=== PATIENT | female | born 1970 | race Caucasian/White ===

== ENCOUNTER 2018-04-17 11:47 | Emergency (ER) | payer OTHER, SELFPAY ==
[2018-04-17 12:05] VITALS: BP 110/68; PULSE 80; RESP 20; TEMP 36.6; O2SAT 100; BMI 20.9
--- NOTE | 2018-04-17 12:05 | ED.EYEPROB ---
HPI - Eye Problem <SHAZIA Steve - Last Filed: 04/17/18 22:06> General Chief complaint: Eye Problems Stated complaint: itching/burning on both eyes Time Seen by Provider: 04/17/18 12:05 Source: patient Mode of arrival: ambulatory Limitations: no limitations History of Present Illness HPI Narrative: 47-year-old female here for complaint of having irritation and redness to bilateral upper eyelids for the past couple of weeks. She also reports having light sensitivity to to both eyes for the same timeframe. She states that she has some watering of her eyes mostly in the morning. She denies any purulent drainage from the eyes. She denies any changes in lotions or hygiene products. She denies any vision changes. No other concerns or complaints at this time. Related Data Home Medications Medication Instructions Recorded Confirmed dextroamphetamine-amphetamine 1 cap PO DAILY 04/17/18 04/17/18 Allergies Allergy/AdvReac Type Severity Reaction Status Date / Time Penicillins Allergy Verified 04/17/18 12:09 Review of Systems <SHAZIA Steve - Last Filed: 04/17/18 22:06> Constitutional Denies chills, Denies fever(s), Denies lethargy and Denies weakness Eyes Comments: Irritation to bilateral eyelids ENT Ears, Nose, Mouth, and Throat: Denies change in voice, Denies neck pain and Denies sore throat Cardiovascular Denies chest pain, Denies irregular heart rhythm, Denies lightheadedness, Denies palpitations, Denies dyspnea, Denies dyspnea on exertion and Denies orthopnea Respiratory Denies cough, Denies dyspnea, Denies dyspnea on exertion and Denies wheezing Gastrointestinal Gastrointestinal: Denies abdominal pain, Denies change in bowel habits, Denies diarrhea, Denies nausea and Denies vomiting Genitourinary Denies hematuria, Denies flank pain, Denies urinary incontinence and Denies urinary urgency Musculoskeletal Denies neck pain Integumentary/Breasts Denies pruritus, Denies erythema, Denies rash and Denies wounds Neurologic Denies confusion and Denies weakness Psychiatric Denies anxiety, Denies confusion, Denies depression, Denies homicidal ideation and Denies suicidal ideation Endocrine Denies palpitations Hematologic/Lymphatic Denies easy bruising Allergic/Immunologic Denies wheezing Exam <SHAZIA Steve - Last Filed: 04/17/18 22:06> Initial Vital Signs Initial Vital Signs: Vital Signs Temperature 97.8 F 04/17/18 12:05 Pulse Rate 80 04/17/18 12:05 Respiratory Rate 20 04/17/18 12:05 Blood Pressure 110/68 04/17/18 12:05 Pulse Oximetry 100 04/17/18 12:05 Const General: cooperative and well developed Nutritional Appearance: well nourished Orientation: alert, awake, oriented x3 and not confused HENVA Mouth: oral mucosae normal and moist mucous membranes Eyes General: appearance normal, both eyes and all related structures Eyelids: eyelid abnormality (Slight erythema to bilateral upper eyelids) Conjunctivae: conjunctivae normal Sclera: sclerae normal Pupils: PERRL EOM: EOM intact bilaterally Resp Effort & Inspection: normal respiratory effort, able to speak in complete sentences, no respiratory distress and no use of accessory muscles Auscultation: clear to auscultation bilaterally, no rales, no rhonchi and no wheezes Cardio Rate: regular rate Rhythm: regular rhythm Heart Sounds: no click, no gallops, no murmurs and no rubs Pulses: normal peripheral pulses Skin General: no rashes or lesions noted, No jaundice and No petechiae Neuro General: alert, oriented x3, gait normal and no focal motor deficits Speech: speech normal <Flakito Wallace MD - Last Filed: 04/19/18 07:22> Initial Vital Signs Initial Vital Signs: Vital Signs Temperature 97.8 F 04/17/18 12:05 Pulse Rate 80 04/17/18 12:05 Respiratory Rate 20 04/17/18 12:05 Blood Pressure 110/68 04/17/18 12:05 Pulse Oximetry 100 04/17/18 12:05 Course <SHAZIA Steev - Last Filed: 04/17/18 22:06> Vital Signs - 8 hr 04/17/18 12:05 Temperature 97.8 F Pulse Rate 80 Respiratory Rate 20 Blood Pressure 110/68 Pulse Oximetry 100 <Flakito Wallace MD - Last Filed: 04/19/18 07:22> Vital Signs - 8 hr 04/17/18 12:05 Temperature 97.8 F Pulse Rate 80 Respiratory Rate 20 Blood Pressure 110/68 Pulse Oximetry 100 MDM - Eye Problem <SHAZIA Steve - Last Filed: 04/17/18 22:06> MDM Narrative Medical decision making narrative: Signs and symptoms are consistent with blepharitis. Discussed case with Ophthalmology who will do a further examination today. She is sent over to ophthalmology for further evaluation and treatment. Return emergency room for any worsening symptoms. Follow up with primary care provider. Discharge Plan Departure Patient Disposition: Home Clinical Impression: Blepharitis of both eyes Discharge Date/Time: 04/17/18 12:52 Interventions: ED Discharge Assessment Last Done: 04/17/18 12:40 Instructions: DI for Blepharitis Activity Restrictions/Additional Instructions: Signs and symptoms are consistent with blepharitis. Recommend having thorough eye exam. Ophthalmology will see you today. After leaving here walk over to ophthalmology for further evaluation and treatment. For any worsening symptoms return emergency room. Prescriptions: No Action dextroamphetamine-amphetamine 20 mg capsule,extended release 24hr 1 cap PO DAILY RF: 0 Referrals: Heladio Sorensen MD [Physician] - <Flakito Wallace MD - Last Filed: 04/19/18 07:22> Sign Out Provider Sign Out Attestation: The PA/METAL PRECISION MACHINE ASSEMBLER functioned independently for the care of this pt, I was available, but not asked to participate in care. I am unable to determine appropriateness of management without personally examining the pt.
== END 2018-04-17 12:52 | disposition home or self-care (01) ==
PROVIDERS: Emergency Provider Nurse Practitioner Family
DX: H01.003 Unspecified blepharitis right eye, unspecified eyelid (principal); H01.006 Unspecified blepharitis left eye, unspecified eyelid
CPT/HCPCS: 99282; 99283

== ENCOUNTER → 2022-12-05 11:16 | Outpatient (CLI) | payer OTHER, SELFPAY | PROVIDERS: Family Provider Physician Assistant; PCP Physician Assistant; Referring Provider Physician Assistant; Visit Provider Physician Assistant | DX: M79.601 Pain in right arm (principal) | CPT/HCPCS: 95886; 95909 ==

== ENCOUNTER → 2023-12-29 12:39 | Outpatient (CLI) | payer OTHER, SELFPAY ==
--- NOTE | 2023-12-29 12:40 | DI.US.S_ITS ---
ULTRASOUND OF RIGHT BREAST: 12/29/2023 CLINICAL: Follow up prior abnormal mammo + ultrasound. Comparison is made to exams dated: 05/30/2023 ultrasound, 05/30/2023 mammogram, 05/27/2023 mammogram, 03/15/2022 mammogram, and 09/08/2018 mammogram - [facility]. Color flow and real-time ultrasound of the right breast were performed. Strong scale images of the real-time examination were reviewed. There is a 0.8 cm x 0.5 cm x 0.8 cm oval mass with a circumscribed margin in the right breast at 9 o'clock posterior depth 3 cm from the nipple. This oval mass is hypoechoic and heterogeneously echogenic with internal echoes and no posterior acoustic shadowing or enhancement. Accounting for differences in imaging technique, this abnormality is not significantly changed although there are a few angular margins today. There was question about whether this correlated with a mammographic asymmetry. IMPRESSION: INCOMPLETE: NEEDS ADDITIONAL IMAGING EVALUATION The 0.8 cm x 0.5 cm x 0.8 cm oval mass in the right breast is indeterminate. Comparison with updated right mammogram is recommended but was not able to be performed today. The patient will return for repeat right mammogram to demonstrate stability of previously described right breast asymmetry. An ultrasound guided biopsy is recommended given possible changes in appearance of the margins of this mass. This is at a low suspicion for malignancy. Findings and recommendations were discussed with the patient by Dr. Louie by telephone at 1146 hrs on 12/31/2023. This exam was interpreted at Station ID: [id number]. Electronically Signed By: Nitish Louie M.D. aty/:12/31/2023 11:46:57 letter sent: Additional Imaging Needed Ultrasound BI-RADS: 0 Indeterminate
== END ==
LOC: US 12:39
PROVIDERS: Family Provider Physician Assistant; PCP Physician Assistant; Referring Provider Nurse Practitioner Family; Visit Provider Nurse Practitioner Family
DX: N63.10 Unspecified lump in the right breast, unspecified quadrant (principal)
CPT/HCPCS: 76642

== ENCOUNTER → 2024-01-13 09:38 | Outpatient (CLI) | payer OTHER, SELFPAY ==
--- NOTE | 2024-01-13 09:39 | DI.MG.S_ITS ---
UNILATERAL RIGHT DIGITAL DIAGNOSTIC MAMMOGRAM 3D/2D: 01/13/2024 CLINICAL: Additional evaluation requested from prior study. Comparison is made to exams dated: 12/29/2023 ultrasound - [facility], 05/30/2023 ultrasound, 05/30/2023 mammogram, 05/27/2023 mammogram, 03/15/2022 mammogram, and 09/08/2018 mammogram - [facility]. The right breast is heterogeneously dense, which may obscure small masses (category c / 51-75% glandular tissue). No significant masses, calcifications, or other findings are seen in the breast. Previously described possible asymmetry in the posterior depth of the right breast along the central axis seen only on the mediolateral oblique view is not confirmed and overall appears less conspicuous. Stable grouped calcifications in the central right breast. IMPRESSION: INCOMPLETE: NEEDS ADDITIONAL IMAGING EVALUATION There is no abnormality seen in the right breast to correspond with the previously described possible asymmetry which likely represents dense fibroglandular tissue. However, there was a probably benign hypoechoic mass versus complex cyst seen on comparison right breast ultrasound (05/30/2023) localizing to the 9 o'clock ( 9:30 o'clock) 3 cm from the nipple that demonstrated increased angular margins on recent follow up ultrasound of 12/31/2023. There is no definite correlate on today's mammogram and no definite correlation between sonographic findings with any of the previous mammograms. Sonographic findings on recent ultrasound is at a low suspicion for malignancy and a biopsy is recommended. The patient will have an ultrasound of the right axilla to document lymph node status immediately following this study. Based on the Tyrer Cuzick model (a risk assessment model) the patient's lifetime risk is 16.3% and her 10 year risk is 4.3%. According to the ACR, ACS, and NCCN guidelines, an annual breast MRI exam along with mammogram is recommended if the patient's lifetime risk is 20% or greater. This exam was interpreted at Station ID: [id number]. NOTE: For mammograms, a report in lay terms will be sent to the patient. Approximately 15% of breast malignancies will not be visualized mammographically. In the management of a palpable breast mass, a negative mammogram must not discourage biopsy of a clinically suspicious lesion. Electronically Signed By: Nitish Louie M.D. aty/:01/13/2024 13:38:54 ACR BI-RADS Category 0: Incomplete 3340F
--- NOTE | 2024-01-13 09:40 | DI.US.S_ITS ---
LIMITED ULTRASOUND OF RIGHT BREAST AND AXILLA: 01/13/2024 CLINICAL: Patient returns for additional imaging of the right axilla. Comparison is made to exams dated: 01/13/2024 mammogram, 12/29/2023 ultrasound - [facility], 05/30/2023 ultrasound, 05/30/2023 mammogram, 05/27/2023 mammogram, and 03/15/2022 mammogram - [facility]. Real-time ultrasound of the right breast retroareolar and axilla regions was performed. No significant abnormalities were seen sonographically in the right axilla. IMPRESSION: SUSPICIOUS OF MALIGNANCY There is no sonographic evidence of malignancy in the right axilla. Please see separate ultrasound report dated 12/29/2023 with recommendations for ultrasound guided biopsy of previously described low suspicion mass in the right breast at the 9-9:30 o'clock position, 3 cm from the nipple. Findings and recommendations were conveyed to the patient during today's examination to confirm proceeding with original set plan. This exam was interpreted at Station ID: [id number]. Electronically Signed By: Nitish Louie M.D. aty/:01/13/2024 15:01:00 Entry: - 01/19/2024 14:27:38 letter sent: Biopsy Required Ultrasound BI-RADS: 4a Low suspicion for malignancy
== END ==
LOC: MAMMO 09:39
PROVIDERS: Family Provider Physician Assistant; PCP Physician Assistant; Referring Provider Nurse Practitioner Family; Visit Provider Nurse Practitioner Family
DX: R92.8 Other abnormal and inconclusive findings on diagnostic imaging of breast (principal); R92.331 Mammographic heterogeneous density, right breast
CPT/HCPCS: 76882; 77065; G0279

== ENCOUNTER → 2024-01-27 08:56 | Outpatient (CLI) | payer OTHER, SELFPAY ==
--- NOTE | 2024-01-27 | PATH_ITS ---
[facility] Accession Number: [id number] No. of containers..01 Tissue . 01 Material submitted: . breast - RIGHT BREAST MASS . 01 Diagnosis: Breast mass, right, biopsy: Benign breast parenchyma with sclerosing adenosis with associated micro-calcifications, and usual ductal hyperplasia, with focal pseudoangiomatous stromal hyperplasia (PASH) and fibrocystic changes with focal columnar cell change without atypia. Negative for carcinoma in submitted cores. See comment. --- Comment: No evidence of carcinoma is seen in submitted core biopsies; however a close follow up is recommended. Case was reviewed interdeparmentally by Dr. Thompson, and Dr. Castellano and agreed on above diagnosis. --- Immunohistochemical stains performed on part A1 with appropriate controls show: P63 and smooth muscle myosin stains show preserved myoepithelial cells layer in all glandular elements. D2-40 and CD34 highlight vascular elements and focal PASH. Focal area with usual ductal hyperplasia was highlighted by CK5/6 (patchy positivity) with heterogeneous non diffuse ER staining. Teddy keratin is negative for carcinoma. --- Technical Note: The immunohistochemical stains reported were performed at [facility] ([address], [facility] [address]). They were developed and their performance characteristics determined by [employer] They have not been cleared or approved by the U.S. Food and Drug Administration, although such approval is not required for analyte-specific reagents of this type. . TXN 01/29/2024 [facility] Local . 01 Electronically signed: . Vance Thompson MD, Pathologist NPI- [id number] . 01 Gross description: . Received is one formalin-filled container labeled with the patient's name designated right breast mass. The specimen is received with plastic filter in container and sample loose in container, and consists of multiple light yellow-cohen pieces of soft tissue which range in size from 0.1 x 0.1 x 0.1 cm to 1.3 x 0.2 x 0.2 cm. All fragments are totally submitted in cassette A1. . Possible collection date and time per requisition 01/27/2024 at 1012 hours. Total fixation time approximately 16 hours. ([id number]) /ROMERO 01/28/[address] [place] [address] . 01 Pathologist provided ICD-10: N60.39 . 01 CPT . 963193, F93737, [id number] Specimen Comment: A courtesy copy of this report has been sent to [facility] Pathology Performed at: [address] [address], [place], [place] [id number] MD Moe Hunter MD Phone: [phone]
--- NOTE | 2024-01-27 08:57 | DI.US.S_ITS ---
ULTRASOUND GUIDED BIOPSY RIGHT BREAST USING VACUUM DEVICE WITH MARKING DEVICE INSERTED AND POST DIGITAL MAMMOGRAPHIC IMAGIN01/27/2024 CLINICAL: Right breast mass. PATIENT CONSENT: Risks (minor bleeding, infection, vasovagal reaction and repeat procedure), benefits and alternatives were explained to the patient and written informed consent was obtained. Correlation is made to exams dated: 01/27/2024 mammogram, 01/13/2024 ultrasound, 01/13/2024 mammogram, 12/29/2023 ultrasound - [facility], 05/30/2023 ultrasound, and 05/30/2023 mammogram - [facility]. An ultrasound guided biopsy using real-time ultrasound was performed for the 0.8 cm x 0.5 cm x 0.8 cm mass located in the right breast at 9 o'clock posterior depth 3 cm from the nipple. This was described on the previous ultrasound report. The skin was prepped in the usual manner. A skin daniel was made in the breast. The abnormality was approached from the lateral aspect. A 12 gauge biopsy needle was placed adjacent to the abnormality under ultrasound guidance. Once the needle was documented to be in the correct location, four specimens were obtained using a vacuum assisted device. The patient received additional local anesthetic during the procedure. A clip was inserted into the biopsy cavity. A sterile dressing was applied to the access site. Post procedure digital mammographic imaging demonstrates the location device at the targeted area. The specimens were sent to the laboratory for pathological analysis. IMPRESSION: ULTRASOUND GUIDED BIOPSY BENIGN Ultrasound guided biopsy of the 0.8 cm x 0.5 cm x 0.8 cm mass in the right breast at 9 o'clock posterior depth 3 cm from the nipple was successful with no apparent post procedure complications. Pathology indicates benign sclerosing adenosis with associated microcalcifications, usual ductal hyperplasia, and focal pseudoangiomatous stromal hyperplasia (PASH). Pathology results are concordant with imaging findings. Recommend return to annual mammogram screen, which patient will be due for in May 2024. This exam was interpreted at Station ID: [id number]. Sanjay Ureña M.D., Ph.D. ezekiel ponce/:02/03/2024 00:02:34
--- NOTE | 2024-01-27 08:58 | DI.MG.S_ITS ---
UNILATERAL RIGHT DIGITAL DIAGNOSTIC MAMMOGRAM 3D/2D - RIGHT BREAST POST-PROCEDURE IMAGING FOR MARKER PLACEMENT: 01/27/2024 CLINICAL: Post right breast ultrasound biopsy, clip placement imaging. Comparison is made to exams dated: 01/13/2024 ultrasound and 01/13/2024 mammogram - [facility]. The right breast is heterogeneously dense, which may obscure small masses (category c / 51-75% glandular tissue). There is a marker clip in the appropriate position in the right breast at 9 o'clock anterior depth. This marker clip placement is at the biopsy site. IMPRESSION: POST PROCEDURE MAMMOGRAM FOR MARKER PLACEMENT There was a successful marker clip placement in the right breast anterior depth. Based on the Tyrer Cuzick model (a risk assessment model) the patient's lifetime risk is 16.3% and her 10 year risk is 4.3%. According to the ACR, ACS, and NCCN guidelines, an annual breast MRI exam along with mammogram is recommended if the patient's lifetime risk is 20% or greater. This exam was interpreted at Station ID: [id number]. NOTE: For mammograms, a report in lay terms will be sent to the patient. Approximately 15% of breast malignancies will not be visualized mammographically. In the management of a palpable breast mass, a negative mammogram must not discourage biopsy of a clinically suspicious lesion. Electronically Signed By: Sanjay ponce/eddie:01/27/2024 22:19:16 ACR BI-RADS Category Post-procedure mammogram for marker placement
== END ==
PROVIDERS: Family Provider Physician Assistant; PCP Physician Assistant; Referring Provider Nurse Practitioner Family; Visit Provider Nurse Practitioner Family
DX: R92.8 Other abnormal and inconclusive findings on diagnostic imaging of breast (principal); N60.21 Fibroadenosis of right breast; N64.89 Other specified disorders of breast; R92.331 Mammographic heterogeneous density, right breast
CPT/HCPCS: 19083; 77065

== ENCOUNTER → 2025-07-20 11:49 | Outpatient (CLI) | payer OTHER, SELFPAY ==
--- NOTE | 2025-07-20 11:51 | DI.MG.S_ITS ---
MM screening mammo BI: 07/20/2025. BI-RADS: 2 CLINICAL: 54-year old female for bilateral screening mammogram. Tyrer-Cuzick lifetime risk of 8.4%. No personal or first-degree family history of breast cancer. PRIOR EXAMS 01/27/2024, 01/13/2024, 12/29/2023, 05/24/2023, 03/15/2022. MAMMOGRAPHY TECHNIQUE: 2D and 3D (tomosynthesis) digital mammographic views obtained, with additional images as needed for full coverage. Current study was also evaluated with a Computer Aided Detection (CAD) system. DENSITY C. The breasts are heterogeneously dense, which may obscure small masses. MAMMOGRAPHY FINDINGS Right: Biopsy marker present on the right. There are no suspicious masses, calcifications, or other findings in the breast. Left: No suspicious mass, asymmetry, microcalcification, or other abnormality seen. IMPRESSION: Right * No evidence of malignancy with benign findings. Left * No evidence of malignancy. RECOMMENDATIONS Bilateral * Annual screening mammography. OVERALL ASSESSMENT CATEGORY BI-RADS-2: Benign. The [employer] recommends annual screening mammography beginning at age 40 for women with average risk of breast cancer. ELECTRONICALLY SIGNED: Olamide Danielle M.D. on 07/20/2025 at 05:21:39 PM PT Interpreting Station ID: [id number]
== END ==
PROVIDERS: Family Provider Physician Assistant; PCP Physician Assistant; Referring Provider Physician Assistant; Visit Provider Physician Assistant
DX: Z12.31 Encounter for screening mammogram for malignant neoplasm of breast (principal); R92.333 Mammographic heterogeneous density, bilateral breasts
CPT/HCPCS: 77063; 77067